=== PATIENT | female | born 1985 | race Caucasian/White ===

== ENCOUNTER 2018-01-01 11:27 | Emergency (ER) | payer OTHER ==
[~2018-01-01] VITALS: Ht 167.6 cm; Wt 115.0 kg
[~2018-01-01 11:27] MED LIST: BACTRIM DS1 TAB PO; BENADRYL25 M1 OR; CELEXA20 M1 PO; CIPROFLOXACN500 MG PO; MIRALAX3350 NF PO; MOTRIN IB200 MG OR; PAROXETINE20 MG PO; PRENATA3 OR; PRILOSEC40 MG PO; PROTONIX40 MG PO
[2018-01-01] MEDS ORDERED: NAPROSYN500 MG PO (13:21)
[2018-01-01 13:46] VITALS: BP 130/81
== END 2018-01-01 13:46 | disposition home or self-care (01) ==
LOC: ED 11:27
DX: S93.401A Sprain of unspecified ligament of right ankle, initial encounter (principal); S93.601A Unspecified sprain of right foot, initial encounter; F17.210 Nicotine dependence, cigarettes, uncomplicated; X50.1XXA Overexertion from prolonged static or awkward postures, initial encounter; Y93.89 Activity, other specified; Y92.008 Other place in unspecified non-institutional (private) residence as the place of occurrence of the external cause

== ENCOUNTER → 2018-09-02 | Outpatient (REF) | payer BC ==
[~2018-09-02] MED LIST changes: +NAPROSYN500 MG PO
== END | disposition home or self-care (01) | DRG 948 ==
LOC: RT 09:32
PROVIDERS: ATTEND Nurse Practitioner Psychiatric/Mental Health
DX: R53.83 Other fatigue (principal); Z79.899 Other long term (current) drug therapy

== ENCOUNTER → 2018-09-02 | Outpatient (REF) | END | disposition home or self-care (01) | DRG 948 | LOC: LAB 09:34 | PROVIDERS: ATTEND Nurse Practitioner Psychiatric/Mental Health | DX: R53.83 Other fatigue (principal); Z79.899 Other long term (current) drug therapy ==

== ENCOUNTER 2022-04-20 08:14 | Emergency (ER) | payer BC ==
[~2022-04-20] VITALS: Ht 167.6 cm; Wt 91.1 kg
[~2022-04-20 08:14] MED LIST changes: +MACROBID100 M1 PO
[2022-04-20 09:27] VITALS: BP 131/81
[2022-04-20 09:31] VITALS: BP 109/53
[2022-04-20 09:55] LABS: HEMOGLOBIN 14.3 g/dl (12.0-16.0); IMMATURE GRANULOCYTES 0.3 % (0.0-5.0); MEAN CORPUSCULAR HGB 28.9 pG CALC (26.0-32.0); MEAN CORPUSCULAR HGB CONC 33.3 g/dL CAL (32.0-36.0); NEUT# 5.29 thou/uL (2.00-7.15); RED BLOOD COUNT 4.94 mill/uL (4.20-5.60); RED CELL DISTRI WIDTH 12.7 % (11.5-15.5)
[2022-04-20 09:59] LABS: URINE BILIRUBIN - DIPSTICK NEGATIVE (NEGATIVE); URINE BLOOD DIPSTICK LARGE (NEGATIVE); URINE COLOR YELLOW; URINE GLUCOSE - DIPSTICK NEGATIVE (NEGATIVE); URINE KETONE NEGATIVE (NEGATIVE); URINE LEUK ESTERASE NEGATIVE (NEGATIVE); URINE PROTEIN - DIPSTICK NEGATIVE (NEG-TRACE); URINE SPECIFIC GRAVITY >=1.030; URINE UROBILINOGEN - DIPSTICK 0.2 E.U./dL (0.2)
[2022-04-20 10:07] LABS: URINE NITRITE - DIPSTICK NEGATIVE (Negative)
[2022-04-20 10:11] LABS: URINE EPITHELIAL CELLS FEW EPI/hpf (0-FEW)
[2022-04-20 10:12] LABS: ALBUMIN 4.6 g/dL (3.2-5.0); ALKALINE PHOSPHATASE 89 u/l (38-126); ANION GAP 11 (6-22 (CALC)); BILIRUBIN, TOTAL 0.3 mg/dL (0.0-1.4); BUN 12 mg/dL (7-17); BUN/CREATININE RATIO 17 (12-20 (CALC)); CARBON DIOXIDE 27 mmol/l (22-30); CHLORIDE 106 mmol/l (95-108); CREATININE 0.7 mg/dL (0.5-1.0); GFR FOR AFR.AMER. > 60 ML/MIN (>=60 (CALC)); GFR OTHER RACES > 60 ML/MIN (>=60 (CALC)); LIPASE 83 u/l (23-300); POTASSIUM 4.1 mmol/l (3.5-5.1); SGOT/AST 22 u/l (14-36); SODIUM 140 mmol/l (137-146); TOTAL PROTEIN 7.3 g/dL (6.3-8.2)
[2022-04-20] MEDS ORDERED: ZOFRAN4 MG/TAB PO (11:56)
[2022-04-20] MEDS ORDERED: PERCOCET 5/325M1 TAB PO (11:56)
[2022-04-20] MEDS ORDERED: DICYCLOMINE HCL20 MG PO (11:56)
[2022-04-20] MEDS ORDERED: OMNICEF300 M1 PO (11:56)
[2022-04-20 12:16] VITALS: BP 109/53
== END 2022-04-20 12:45 | disposition home or self-care (01) | DRG 694 ==
LOC: ED 08:14
PROVIDERS: Internal Medicine
DX: N13.2 Hydronephrosis with renal and ureteral calculous obstruction (principal); F17.200 Nicotine dependence, unspecified, uncomplicated

== ENCOUNTER 2024-03-03 12:11 | Emergency (ER) | payer BC ==
[~2024-03-03] VITALS: Ht 167.6 cm; Wt 69.3 kg
[~2024-03-03 12:11] MED LIST changes: +AZITHROMYCIN500 MG PO; +DICYCLOMINE HCL20 MG PO; +MEDDOSEPAK PO; +OMNICEF300 M1 PO; +PERCOCET 5/325M1 TAB PO; +WEGOVY1 MG SC; +ZOFRAN4 MG/TAB PO
[2024-03-03 12:16] VITALS: BP 125/79
[2024-03-03] MEDS ORDERED: CEPHALEXIN500 M1 PO ×2 (12:29→12:41)
[2024-03-03 12:30] VITALS: BP 121/86
[2024-03-03 12:37] VITALS: BP 125/79
== END 2024-03-03 12:43 | disposition home or self-care (01) | DRG 863 ==
LOC: ED 12:11
DX: T81.41XA Infection following a procedure, superficial incisional surgical site, initial encounter (principal); B96.83 Acinetobacter baumannii as the cause of diseases classified elsewhere; Y83.8 Other surgical procedures as the cause of abnormal reaction of the patient, or of later complication, without mention of misadventure at the time of the procedure; F17.290 Nicotine dependence, other tobacco product, uncomplicated

== ENCOUNTER 2024-03-09 07:14 | Emergency (ER) | payer BC ==
[~2024-03-09] VITALS: Ht 167.6 cm; Wt 67.7 kg
[2024-03-09] VITALS (7 sets, daily range): BP systolic 98–118; BP diastolic 64–75
[~2024-03-09 07:14] MED LIST changes: +CEPHALEXIN500 M1 PO
[2024-03-09 07:48] LABS: BASO% 0.7 % (0-3); EOS% 8.5 % (0-8); HEMATOCRIT 44.1 % (37.0-47.0); HEMOGLOBIN 14.2 g/dl (12.0-16.0); LYMPH% 40.2 % (15-41); MEAN CELL VOLUME 85.6 fL CALC (80.0-100.0); MEAN CORPUSCULAR HGB 27.6 pG CALC (26.0-32.0); MEAN CORPUSCULAR HGB CONC 32.2 g/dL CAL (32.0-36.0); MONO% 5.9 % (2-13); NEUT# 1.9 thou/uL (2.00-7.15); NEUT% 44.7 % (42-76); RED BLOOD COUNT 5.15 mill/uL (4.20-5.60)
[2024-03-09 08:19] LABS: ALBUMIN 4.5 g/dL (3.2-5.0); CREATININE 0.8 mg/dL (0.5-1.0); POTASSIUM 4.2 mmol/l (3.5-5.1); TOTAL PROTEIN 7.6 g/dL (6.3-8.2)
[2024-03-09 08:21] LABS: BILIRUBIN, TOTAL 0.5 mg/dL (0.02-1.3)
== END 2024-03-09 10:42 | disposition home or self-care (01) | DRG 921 ==
LOC: ED 07:14
PROVIDERS: Family Medicine
DX: T81.89XA Other complications of procedures, not elsewhere classified, initial encounter (principal); F17.200 Nicotine dependence, unspecified, uncomplicated; Y83.8 Other surgical procedures as the cause of abnormal reaction of the patient, or of later complication, without mention of misadventure at the time of the procedure
CPT/HCPCS: Q9967